=== PATIENT | male | born 2000 | race Caucasian/White ===

== ENCOUNTER 2019-07-04 17:31 | Emergency (ER) | payer OTHER ==
[~2019-07-04] VITALS: Ht 177.8 cm; Wt 72.7 kg
[2019-07-04 18:30] LABS: URINE WBC 0 /hpf (0-3)
[2019-07-04 18:35] LABS: EOS # 0.2 (0.04-0.40); EOS % 1.7 % (0.0-4.0); HEMATOCRIT 48.6 % (36.0-47.0); HEMOGLOBIN 16.8 g/dL (12.5-16.1); LYMPH# 1.8 (1.50-4.00); MEAN CELL VOLUME 91 fl (78-95); MEAN CORPUSCULAR HEMOGLOBIN 31 pg (26-32); MEAN CORPUSCULAR HGB CONC 35 g/dL (33-37); MEAN PLATELET VOLUME 9.5 fl (7.4-10.4); MONO # 0.8 (0.20-0.80); NEU # 6.2 (1.40-6.50); PLATELET COUNT 255 K/mm3 (130-400); RED BLOOD COUNT 5.35 M/mm3 (4.20-5.60); RED CELL DISTRIBUTION WIDTH 12.5 % (11.5-14.5); WHITE BLOOD COUNT 8.9 K/mm3 (4.8-10.8)
[2019-07-04 18:49] LABS: URINE APPEARANCE CLEAR; URINE BILIRUBIN NEGATIVE (NEGATIVE); URINE BLOOD TRACE (NEGATIVE); URINE COLOR YELLOW; URINE GLUCOSE NEGATIVE (NEGATIVE); URINE KETONE NEGATIVE (NEGATIVE); URINE LEUKOCYTE ESTERASE NEGATIVE (NEGATIVE); URINE NITRATE NEGATIVE (NEGATIVE); URINE PROTEIN(semi-quant) NEGATIVE (NEGATIVE); URINE UROBILINOGEN NORMAL (NORMAL)
[2019-07-04] MEDS ORDERED: MORGIDOX 1X100100 MG PO (22:05)
[2019-07-04 22:20] VITALS: BP 125/73
== END 2019-07-04 22:20 | disposition home or self-care (01) ==
LOC: ED 17:31
PROVIDERS: Family Medicine
DX: N45.1 Epididymitis (principal)
CPT/HCPCS: J0696; J1885